=== PATIENT | female | born 1950 | race Caucasian/White ===

== ENCOUNTER 2016-12-06 09:21 | Outpatient (CLI) | payer BC ==
[2016-02-15 01:23] VITALS: BP 173/59
[2016-12-06 10:08] LABS: eGFR (African) > 60; eGFR (Non-African) > 60
== END 2016-12-06 09:22 ==
LOC: LAB 09:21
PROVIDERS: ATTEND Family Medicine
DX: Z00.00 Encounter for general adult medical examination without abnormal findings (principal); E11.9 Type 2 diabetes mellitus without complications
CPT/HCPCS: 80053; 80061; 82043; 83036

== ENCOUNTER 2017-02-22 08:52 | Outpatient (CLI) | payer MEDICARE, OTHER ==
[2016-02-15 01:23] VITALS: BP 173/59
== END 2017-02-22 08:53 ==
LOC: RAD 08:52
PROVIDERS: ATTEND Family Medicine
DX: Z78.0 Asymptomatic menopausal state (principal)
CPT/HCPCS: 77080